=== PATIENT | male | born 1960 | race American Indian/Alaskan Native ===

== ENCOUNTER 2017-07-21 12:34 | Emergency (ER) | payer MEDICAID ==
[2017-07-21 13:55] VITALS: BP 135/97
--- NOTE | 2017-07-21 18:44 | Emergency Department Report ---
Entered by MAZIN CASTILLO, acting as scribe for KEO GUTIERREZ NP. - General Chief complaint: Skin/Abscess/Foreign Body Stated complaint: ABSCESS LEFT UNDERARM Time Seen by Provider: 07/21/17 13:56 Source: patient Mode of arrival: Ambulatory Limitations: No Limitations - History of Present Illness Initial comments: This is a 57 y/o male, nontoxic, well nourished in appearance, no acute signs of distress with a PMHx of asthma presents with a left axilla abscess that began 2 weeks ago. Rates pain an 8/10 in severity, which she describes as burning in quality. Aggravated with movement and palpation, and alleviated with nothing. Reports associated purulent drainage, but he denies fever, chills, chest pain, SOB, REYES or dizziness, numbness, and tingling. NKDA. MENDOZA complaint: abscess/boil Onset/Timin -: week(s) Tetanus Up to Date: unsure Location: LUE (left axilla) Severity: severe Severity scale (0 -10): 8 Quality: burning Consistency: constant Improves with: immobilization Worsens with: palpation, movement Context: none Associated symptoms: denies other symptoms Treatments Prior to Arrival: none - Related Data Home Medications Medication Instructions Recorded Confirmed Last Taken Furosemide [Lasix] 40 mg PO DAILY 05/14/14 05/14/14 05/12/14 09:00 40MG Meloxicam [Mobic] 15 mg PO DAILY 05/14/14 05/14/14 05/12/14 09:00 15 Montelukast Sodium [Singulair] 10 mg PO DAILY 05/14/14 05/14/14 05/12/14 09:00 10MG Previous Rx's Medication Instructions Recorded Last Taken Type Famotidine [Pepcid] 20 mg PO BID #30 tablet 05/17/14 Unknown Rx Ipratropium/Albuterol Sulfate 1 ampul IH Q6HRT #120 ampul.neb 05/17/14 Unknown Rx [DUONEB *Not for PRN Use*] Nicotine [Habitrol] 21 mg TD QDAY #14 patch 05/17/14 Unknown Rx predniSONE [Deltasone] 20 mg PO QDAY #60 tab 05/17/14 Unknown Rx Cephalexin [Keflex] 500 mg PO Q6HR #28 capsule 06/21/15 Unknown Rx HYDROcodone/APAP 5-325 [[place] 1 each PO Q8H PRN #15 tablet 06/21/15 Unknown Rx 5-325 mg TAB] Ibuprofen [Motrin 800 MG tab] 800 mg PO Q8HR PRN #21 tablet 06/21/15 Unknown Rx Ibuprofen [Motrin 600 MG tab] 600 mg PO Q8H PRN #30 tablet 07/21/17 Unknown Rx Sulfamethoxazole/Trimethoprim 1 each PO BID #14 tablet 07/21/17 Unknown Rx [Bactrim DS TAB] Allergies Allergy/AdvReac Type Severity Reaction Status Date / Time No Known Allergies Allergy Verified 07/21/17 13:51 Abscess Boil HPI - HPI Chief Complaint: Skin/Abscess/Foreign Body Stated Complaint: ABSCESS LEFT UNDERARM Time Seen by Provider: 07/21/17 13:56 Duration: >1 Week (2 weeks) Location: Upper Extremity (left axilla) Severity: Severe History: Yes Pain (to affected area on left axilla), Yes Purulent Drainage ( left axilla abscess), Yes Previous History, No Fever, No Numbness, No Foreign Body, No Insect Bite Home Medications: Home Medications Medication Instructions Recorded Confirmed Last Taken Furosemide [Lasix] 40 mg PO DAILY 05/14/14 05/14/14 05/12/14 09:00 40MG Meloxicam [Mobic] 15 mg PO DAILY 05/14/14 05/14/14 05/12/14 09:00 15 Montelukast Sodium [Singulair] 10 mg PO DAILY 05/14/14 05/14/14 05/12/14 09:00 10MG Previous Rx's Medication Instructions Recorded Last Taken Type Famotidine [Pepcid] 20 mg PO BID #30 tablet 05/17/14 Unknown Rx Ipratropium/Albuterol Sulfate 1 ampul IH Q6HRT #120 ampul.neb 05/17/14 Unknown Rx [DUONEB *Not for PRN Use*] Nicotine [Habitrol] 21 mg TD QDAY #14 patch 05/17/14 Unknown Rx predniSONE [Deltasone] 20 mg PO QDAY #60 tab 05/17/14 Unknown Rx Cephalexin [Keflex] 500 mg PO Q6HR #28 capsule 06/21/15 Unknown Rx HYDROcodone/APAP 5-325 [[place] 1 each PO Q8H PRN #15 tablet 06/21/15 Unknown Rx 5-325 mg TAB] Ibuprofen [Motrin 800 MG tab] 800 mg PO Q8HR PRN #21 tablet 06/21/15 Unknown Rx Ibuprofen [Motrin 600 MG tab] 600 mg PO Q8H PRN #30 tablet 07/21/17 Unknown Rx Sulfamethoxazole/Trimethoprim 1 each PO BID #14 tablet 07/21/17 Unknown Rx [Bactrim DS TAB] Allergies/Adverse Reactions: Allergies Allergy/AdvReac Type Severity Reaction Status Date / Time No Known Allergies Allergy Verified 07/21/17 13:51 ED Review of Systems Comment: All other systems reviewed and negative Constitutional: denies: chills, fever Eyes: denies: eye pain, eye discharge, vision change ENT: denies: ear pain, throat pain Respiratory: denies: cough, orthopnea, shortness of breath, SOB with exertion, SOB at rest, stridor, wheezing Cardiovascular: denies: chest pain, palpitations, dyspnea on exertion, orthopnea , edema, syncope, paroxysmal nocturnal dyspnea Endocrine: no symptoms reported Gastrointestinal: denies: abdominal pain, nausea, diarrhea Genitourinary: denies: urgency, dysuria Musculoskeletal: denies: back pain, joint swelling, arthralgia Skin: other (left axilla abscess). denies: rash, lesions Neurological: denies: headache, weakness, paresthesias Psychiatric: denies: anxiety, depression ED Past Medical Hx - Past Medical History Previous Medical History?: Yes Hx Congestive Heart Failure: No Hx Diabetes: No Hx Asthma: Yes Hx COPD: No (uncertain) - Surgical History Past Surgical History?: No - Family History Family history: no significant - Social History Smoking Status: Never Smoker Substance Use Type: None - Medications Home Medications: Home Medications Medication Instructions Recorded Confirmed Last Taken Type Furosemide [Lasix] 40 mg PO DAILY 05/14/14 05/14/14 05/12/14 09:00 History 40MG Meloxicam [Mobic] 15 mg PO DAILY 05/14/14 05/14/14 05/12/14 09:00 History 15 Montelukast Sodium [Singulair] 10 mg PO DAILY 05/14/14 05/14/14 05/12/14 09:00 History 10MG Famotidine [Pepcid] 20 mg PO BID #30 tablet 05/17/14 Unknown Rx Ipratropium/Albuterol Sulfate 1 ampul IH Q6HRT #120 ampul.neb 05/17/14 Unknown Rx [DUONEB *Not for PRN Use*] Nicotine [Habitrol] 21 mg TD QDAY #14 patch 05/17/14 Unknown Rx predniSONE [Deltasone] 20 mg PO QDAY #60 tab 05/17/14 Unknown Rx Cephalexin [Keflex] 500 mg PO Q6HR #28 capsule 06/21/15 Unknown Rx HYDROcodone/APAP 5-325 [[place] 1 each PO Q8H PRN #15 tablet 06/21/15 Unknown Rx 5-325 mg TAB] Ibuprofen [Motrin 800 MG tab] 800 mg PO Q8HR PRN #21 tablet 06/21/15 Unknown Rx Ibuprofen [Motrin 600 MG tab] 600 mg PO Q8H PRN #30 tablet 07/21/17 Unknown Rx Sulfamethoxazole/Trimethoprim 1 each PO BID #14 tablet 07/21/17 Unknown Rx [Bactrim DS TAB] ED Physical Exam - General Limitations: No Limitations General appearance: alert, in no apparent distress - Head Head exam: Present: atraumatic, normocephalic - Eye Eye exam: Present: normal appearance, PERRL, EOMI. Absent: scleral icterus, conjunctival injection, nystagmus, periorbital swelling, periorbital tenderness Pupils: Present: normal accommodation - ENT ENT exam: Present: normal exam, normal orophraynx, mucous membranes moist, TM's normal bilaterally, normal external ear exam - Neck Neck exam: Present: normal inspection, full ROM. Absent: tenderness, meningismus, lymphadenopathy, thyromegaly - Respiratory Respiratory exam: Present: normal lung sounds bilaterally. Absent: respiratory distress, wheezes, rales, rhonchi, stridor, chest wall tenderness, accessory muscle use, decreased breath sounds, prolonged expiratory - Cardiovascular Cardiovascular Exam: Present: regular rate, normal rhythm, normal heart sounds. Absent: bradycardia, tachycardia, irregular rhythm, systolic murmur, diastolic murmur, rubs, gallop - GI/Abdominal GI/Abdominal exam: Present: soft, normal bowel sounds. Absent: distended, tenderness, guarding, rebound, rigid - Rectal Rectal exam: Present: deferred - Extremities Exam Extremities exam: Present: normal inspection, full ROM, normal capillary refill. Absent: tenderness, pedal edema, joint swelling, calf tenderness - Back Exam Back exam: Present: normal inspection, full ROM. Absent: tenderness, CVA tenderness (R), CVA tenderness (L), muscle spasm, paraspinal tenderness, vertebral tenderness, rash noted - Neurological Exam Neurological exam: Present: alert, oriented X3, CN II-XII intact, normal gait, reflexes normal. Absent: motor sensory deficit - Psychiatric Psychiatric exam: Present: normal affect, normal mood - Skin Skin exam: Present: warm, dry, intact, other (1 cm left axilla open abscess with purulent drainage). Absent: rash ED Course Vital Signs 07/21/17 13:53 Temperature 97.8 F Pulse Rate 110 H Respiratory 20 Rate Blood Pressure 135/97 O2 Sat by Pulse 99 Oximetry - Reevaluation(s) Reevaluation #1: 07/21/17 15:26 Patient is speaking in full sentences with no signs of distress noted. Reevaluation #2: 07/21/17 15:26 The was the abscess has been drained out by squeezing the abscess. After that was performed there is no induration, fluctuance, or swelling. ED Disposition Clinical Impression: Abscess Disposition: DC-01 TO HOME OR SELFCARE Is pt being admited?: No Does the pt Need Aspirin: No Condition: Stable Instructions: Abscess (ED), Sulfamethoxazole/Trimethoprim (By mouth), Ibuprofen (By mouth) Additional Instructions: Follow-up with a primary care doctor in 3-5 days or if symptoms worsen or continue to emergency room as soon as possible. Prescriptions: Ibuprofen [Motrin 600 MG tab] 600 mg PO Q8H PRN #30 tablet PRN Reason: Pain Sulfamethoxazole/Trimethoprim [Bactrim DS TAB] 1 each PO BID #14 tablet Referrals: PRIMARY CARE, [Primary Care Provider] - 3-5 Days DAVIS PICKENS MD [Staff Physician] - 3-5 Days [facility] [Outside] - 3-5 Days [facility] [Outside] - 3-5 Days Forms: Work/School Release Form(ED) This documentation as recorded by the ANNA acosta JASMINE,accurately reflects the service I personally performed and the decisions made by ,KEO GUTIERREZ, IGNACIO.
== END 2017-07-21 16:06 | disposition home or self-care (01) ==
LOC: ED 12:34
DX: L02.412 Cutaneous abscess of left axilla (principal); J45.909 Unspecified asthma, uncomplicated
CPT/HCPCS: 99282

== ENCOUNTER 2018-04-26 09:29 | Emergency (ER) | payer MEDICAID ==
[2018-04-26 09:38] VITALS: BP 128/84
[2018-04-26] MEDS ORDERED: XYLOCAINE 1% MPF 5 mL INFILTRATI ONE (10:21)
--- NOTE | 2018-04-26 10:26 | Emergency Department Report ---
Abscess Boil HPI - HPI Chief Complaint: Skin/Abscess/Foreign Body Stated Complaint: BUMPS ON BODY Time Seen by Provider: 04/26/18 10:18 Duration: >1 Week Location: Chest Severity: Mild History: Yes Pain, Yes Purulent Drainage, No Fever, No Numbness, No Foreign Body , No Previous History, No Insect Bite HPI: This is a 57-year-old male nontoxic, well nourished in appearance, no acute signs of distress presents to the ED with c/o of abscess in the right upper chest region times one week. Patient said that area has been increase in swelling and yesterday has prominent drainage. Patient denies any fever, chills , nausea, vomiting, chest pain, shortness of breath, headache, stiff neck, numbness or tingling. Patient stated is UTD with tetanus in 2014. PAtient denies any allergies with PMH of asthma. Patient denies any insect bite. Home Medications: Home Medications Medication Instructions Recorded Confirmed Last Taken Furosemide [Lasix] 40 mg PO DAILY 05/14/14 05/14/14 05/12/14 09:00 40MG Meloxicam [Mobic] 15 mg PO DAILY 05/14/14 05/14/14 05/12/14 09:00 15 Montelukast Sodium [Singulair] 10 mg PO DAILY 05/14/14 05/14/14 05/12/14 09:00 10MG Previous Rx's Medication Instructions Recorded Last Taken Type Famotidine [Pepcid] 20 mg PO BID #30 tablet 05/17/14 Unknown Rx Ipratropium/Albuterol Sulfate 1 ampul IH Q6HRT #120 ampul.neb 05/17/14 Unknown Rx [DUONEB *Not for PRN Use*] Nicotine [Habitrol] 21 mg TD QDAY #14 patch 05/17/14 Unknown Rx predniSONE [Deltasone] 20 mg PO QDAY #60 tab 05/17/14 Unknown Rx Cephalexin [Keflex] 500 mg PO Q6HR #28 capsule 06/21/15 Unknown Rx HYDROcodone/APAP 5-325 [[place] 1 each PO Q8H PRN #15 tablet 06/21/15 Unknown Rx 5-325 mg TAB] Ibuprofen [Motrin 800 MG tab] 800 mg PO Q8HR PRN #21 tablet 06/21/15 Unknown Rx Ibuprofen [Motrin 600 MG tab] 600 mg PO Q8H PRN #30 tablet 07/21/17 Unknown Rx Sulfamethoxazole/Trimethoprim 1 each PO BID #14 tablet 07/21/17 Unknown Rx [Bactrim DS TAB] Sulfamethoxazole/Trimethoprim 1 each PO BID #14 tablet 04/26/18 Unknown Rx [Bactrim DS TAB] traMADol [Ultram] 50 mg PO Q6HR PRN #15 tablet 04/26/18 Unknown Rx Allergies/Adverse Reactions: Allergies Allergy/AdvReac Type Severity Reaction Status Date / Time No Known Allergies Allergy Verified 04/26/18 09:35 ED Review of Systems ROS: Stated complaint: BUMPS ON BODY Other details as noted in HPI Constitutional: denies: chills, fever Eyes: denies: eye pain, eye discharge, vision change ENT: denies: ear pain, throat pain Respiratory: denies: cough, shortness of breath, wheezing Cardiovascular: denies: chest pain, palpitations Endocrine: no symptoms reported Gastrointestinal: denies: abdominal pain, nausea, diarrhea Genitourinary: denies: urgency, dysuria Musculoskeletal: denies: back pain, joint swelling, arthralgia Skin: denies: rash, lesions Neurological: denies: headache, weakness, paresthesias Psychiatric: denies: anxiety, depression Hematological/Lymphatic: denies: easy bleeding, easy bruising ED Past Medical Hx - Past Medical History Hx Congestive Heart Failure: No Hx Diabetes: No Hx Asthma: Yes Hx COPD: No (uncertain) - Surgical History Past Surgical History?: No - Social History Smoking Status: Current Every Day Smoker Substance Use Type: Alcohol, Marijuana - Medications Home Medications: Home Medications Medication Instructions Recorded Confirmed Last Taken Type Furosemide [Lasix] 40 mg PO DAILY 05/14/14 05/14/14 05/12/14 09:00 History 40MG Meloxicam [Mobic] 15 mg PO DAILY 05/14/14 05/14/14 05/12/14 09:00 History 15 Montelukast Sodium [Singulair] 10 mg PO DAILY 05/14/14 05/14/14 05/12/14 09:00 History 10MG Famotidine [Pepcid] 20 mg PO BID #30 tablet 05/17/14 Unknown Rx Ipratropium/Albuterol Sulfate 1 ampul IH Q6HRT #120 ampul.neb 05/17/14 Unknown Rx [DUONEB *Not for PRN Use*] Nicotine [Habitrol] 21 mg TD QDAY #14 patch 05/17/14 Unknown Rx predniSONE [Deltasone] 20 mg PO QDAY #60 tab 05/17/14 Unknown Rx Cephalexin [Keflex] 500 mg PO Q6HR #28 capsule 06/21/15 Unknown Rx HYDROcodone/APAP 5-325 [[place] 1 each PO Q8H PRN #15 tablet 06/21/15 Unknown Rx 5-325 mg TAB] Ibuprofen [Motrin 800 MG tab] 800 mg PO Q8HR PRN #21 tablet 06/21/15 Unknown Rx Ibuprofen [Motrin 600 MG tab] 600 mg PO Q8H PRN #30 tablet 07/21/17 Unknown Rx Sulfamethoxazole/Trimethoprim 1 each PO BID #14 tablet 07/21/17 Unknown Rx [Bactrim DS TAB] Sulfamethoxazole/Trimethoprim 1 each PO BID #14 tablet 04/26/18 Unknown Rx [Bactrim DS TAB] traMADol [Ultram] 50 mg PO Q6HR PRN #15 tablet 04/26/18 Unknown Rx ED Abscess Boil Physical Exam - Exam General: Vital signs noted. No distress. Alert and acting appropriately. GENERAL: The patient is a well-developed, well-nourished in no apparent distress. Patient is alert and acting appropriately for age. Alert and oriented 3, no apparent distress, normal gait, atraumatic. HEENT: Head is normocephalic and atraumatic. PERRL, Extraocular muscles are intact. Pupils are equal, round, and reactive to light and accommodation. Nares appeared normal. Mouth is well hydrated and without lesions. Mucous membranes are moist. Posterior pharynx clear of any exudate or lesions. Mouth is well hydrated and without lesions. Tonsils not erythematous or swollen. Uvula midline. Tongue elevated. Mucous members are moist. Posterior pharynx clear, no exudate or lesions. Patent airways. NECK: Supple. No carotid bruits. No lymphadenopathy or thyromegaly.nontender. No meningitic signs are noted. LUNGS: Clear to auscultation. Non labor breathing. No intercostal retractions. Symmetrical with respiration, no wheezing, no rales, or crackles. HEART: Regular rate and rhythm without murmur, rubs or gallops. No reproducible. S1, S2 present, regular rate and rhythm without murmur, no rubs, no gallops. ABDOMEN: Soft, nontender, and nondistended. Positive bowel sounds. No hepatosplenomegaly was noted. No guarding or rebound tenderness, negative epigastric bruit. Negative psoas sign, negative rodrigues sign, negative McBurneys sign EXTREMITIES: Without any cyanosis, clubbing, rash, lesions or edema. Peripheral pulses intact. Capillary refill less than 2 seconds. Full range of motion bilaterally. NEUROLOGIC: Cranial nerves II through XII are grossly intact. Alert and oriented x 3. Normal gait. Symmetrical strength and sensation. Reflexes 2+ throughout. Cerebellar testing normal. GCS score of 15. PSYCHIATRIC: Normal affect with no suicidal or homicidal ideations. Front/Back of Body, Lg (Color): 1 - 2 cm abscess 2 - 0.5 cm abscess Size: 2 cm Exam: Yes Tenderness, Yes Fluctuance, Yes Normal Neurologic Exam, Yes Normal Circulation, No Surrounding Cellulites/Erythema, No Lymphangitis, No Crepitation , No Heart Murmur I & D Note - I & D Note I & D Note: Under sterile field, I used Betadine to cleanse the area. I then used 1% lidacaine plain with 25-gauge 5/8 needle to inject area for anesthetic purposes. Total volume injected 4 mL with 2ml on each abscess. I then used an 11 blade to make a 1 cm incision to each abscess. About 2 mL's of purulent drainage total has been noted. I then used a hemostat to break the abscess formation. I then used sterile 0.9% normal saline flush to flush the wound with total volume of 80 mL used to both abscess. I then put a 1/4 iodoform packing to the incision right chest abscess. A sterile 4 x 4 with tape has been applied as dressing. Bleeding is under control. Patient tolerated the procedure well with no signs of distress noted. ED Course Vital Signs 04/26/18 09:35 Temperature 97.7 F Pulse Rate 89 Respiratory 18 Rate Blood Pressure 128/84 O2 Sat by Pulse 98 Oximetry - Reevaluation(s) Reevaluation #1: 04/26/18 10:25 Patient is speaking in full sentences with no signs of distress noted. Critical care attestation.: If time is entered above; I have spent that time in minutes in the direct care of this critically ill patient, excluding procedure time. ED Medical Decision Making - Medical Decision Making This is a 57-year-old male that presents with 2 chest abscess that was drainage. Patient is stable and was examined by me. This is incision and drainage and has been performed and patient tolerated well. A sterile dressing has been applied. Patient was educated on proper wound care. Patient is discharged with Bactrim and Ultram and was instructed not to operate any machinery while taking Ultram due to drowsiness. Patient was instructed to return in 2 days for packing removal. Patient was instructed to refer to Follow -up with a primary care doctor in 3-5 days or if symptoms worsen and continue return to emergency room as soon as possible. At time of discharge, the patient does not seem toxic or ill in appearance. No acute signs of distress noted. Patient agrees to discharge treatment plan of care. No further questions noted by the patient. ED Disposition Clinical Impression: Abscess, Encounter for incision and drainage procedure Disposition: DC-01 TO HOME OR SELFCARE Is pt being admited?: No Does the pt Need Aspirin: No Condition: Stable Instructions: Abscess (ED), Abscess Incision and Drainage (ED), Tramadol (By mouth), Sulfamethoxazole/Trimethoprim (By mouth) Additional Instructions: Follow-up with a primary care doctor in 3-5 days or if symptoms worsen and continue return to emergency room as soon as possible. Return in 2 days for packing removal and reassessment of the abscess site. Do not operate any machinery while taking Ultram due to drowsiness. Prescriptions: Sulfamethoxazole/Trimethoprim [Bactrim DS TAB] 1 each PO BID #14 tablet traMADol [Ultram] 50 mg PO Q6HR PRN #15 tablet PRN Reason: Pain Referrals: PRIMARY CARE, [Primary Care Provider] - 3-5 Days NATY DUKE MD [Staff Physician] - 3-5 Days [facility] [Outside] - 3-5 Days [facility] [Outside] - 3-5 Days
== END 2018-04-26 10:58 | disposition home or self-care (01) ==
LOC: ED 09:29
DX: L02.213 Cutaneous abscess of chest wall (principal); J45.909 Unspecified asthma, uncomplicated; F17.200 Nicotine dependence, unspecified, uncomplicated; F12.10 Cannabis abuse, uncomplicated
CPT/HCPCS: 99282

== ENCOUNTER 2018-04-28 08:14 | Emergency (ER) | payer MEDICAID ==
[2018-04-28 09:29] VITALS: BP 115/83
--- NOTE | 2018-04-28 10:15 | Emergency Department Report ---
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 status post I&D 4 days ago patient denies pain fever chills no symptoms of infection Onset/Timin -: days(s) Location: chest 1 - abscess wounds x 2dressing intact Place: home Patient Tetanus UTD: Yes Context: other (abscess) Associated Symptoms: none - Related Data Home Medications Medication Instructions Recorded Confirmed Last Taken Furosemide [Lasix] 40 mg PO DAILY 05/14/14 05/14/14 05/12/14 09:00 40MG Meloxicam [Mobic] 15 mg PO DAILY 05/14/14 05/14/14 05/12/14 09:00 15 Montelukast Sodium [Singulair] 10 mg PO DAILY 05/14/14 05/14/14 05/12/14 09:00 10MG Previous Rx's Medication Instructions Recorded Last Taken Type Famotidine [Pepcid] 20 mg PO BID #30 tablet 05/17/14 Unknown Rx Ipratropium/Albuterol Sulfate 1 ampul IH Q6HRT #120 ampul.neb 05/17/14 Unknown Rx [DUONEB *Not for PRN Use*] Nicotine [Habitrol] 21 mg TD QDAY #14 patch 05/17/14 Unknown Rx predniSONE [Deltasone] 20 mg PO QDAY #60 tab 05/17/14 Unknown Rx Cephalexin [Keflex] 500 mg PO Q6HR #28 capsule 06/21/15 Unknown Rx HYDROcodone/APAP 5-325 [Harvey 1 each PO Q8H PRN #15 tablet 06/21/15 Unknown Rx 5-325 mg TAB] Ibuprofen [Motrin 800 MG tab] 800 mg PO Q8HR PRN #21 tablet 06/21/15 Unknown Rx Ibuprofen [Motrin 600 MG tab] 600 mg PO Q8H PRN #30 tablet 07/21/17 Unknown Rx Sulfamethoxazole/Trimethoprim 1 each PO BID #14 tablet 07/21/17 Unknown Rx [Bactrim DS TAB] Sulfamethoxazole/Trimethoprim 1 each PO BID #14 tablet 04/26/18 Unknown Rx [Bactrim DS TAB] traMADol [Ultram] 50 mg PO Q6HR PRN #15 tablet 04/26/18 Unknown Rx Allergies Allergy/AdvReac Type Severity Reaction Status Date / Time No Known Allergies Allergy Verified 04/26/18 09:35 ED Review of Systems ROS: Stated complaint: PACKING REMOVAL Other details as noted in HPI Constitutional: denies: chills, fever Eyes: denies: eye pain, eye discharge, vision change ENT: denies: ear pain, throat pain Respiratory: denies: cough, shortness of breath, wheezing Cardiovascular: denies: chest pain, palpitations Endocrine: no symptoms reported Gastrointestinal: denies: abdominal pain, nausea, diarrhea Genitourinary: denies: urgency, dysuria Musculoskeletal: denies: back pain, joint swelling, arthralgia Skin: lesions (abscess s/p I&D ). denies: rash Neurological: denies: headache, weakness, paresthesias ED Past Medical Hx - Past Medical History Hx Congestive Heart Failure: No Hx Diabetes: No Hx Asthma: Yes Hx COPD: No (uncertain) - Social History Smoking Status: Current Every Day Smoker Substance Use Type: Alcohol, Marijuana - Medications Home Medications: Home Medications Medication Instructions Recorded Confirmed Last Taken Type Furosemide [Lasix] 40 mg PO DAILY 05/14/14 05/14/14 05/12/14 09:00 History 40MG Meloxicam [Mobic] 15 mg PO DAILY 05/14/14 05/14/14 05/12/14 09:00 History 15 Montelukast Sodium [Singulair] 10 mg PO DAILY 05/14/14 05/14/14 05/12/14 09:00 History 10MG Famotidine [Pepcid] 20 mg PO BID #30 tablet 05/17/14 Unknown Rx Ipratropium/Albuterol Sulfate 1 ampul IH Q6HRT #120 ampul.neb 05/17/14 Unknown Rx [DUONEB *Not for PRN Use*] Nicotine [Habitrol] 21 mg TD QDAY #14 patch 05/17/14 Unknown Rx predniSONE [Deltasone] 20 mg PO QDAY #60 tab 05/17/14 Unknown Rx Cephalexin [Keflex] 500 mg PO Q6HR #28 capsule 06/21/15 Unknown Rx HYDROcodone/APAP 5-325 [Harvey 1 each PO Q8H PRN #15 tablet 06/21/15 Unknown Rx 5-325 mg TAB] Ibuprofen [Motrin 800 MG tab] 800 mg PO Q8HR PRN #21 tablet 06/21/15 Unknown Rx Ibuprofen [Motrin 600 MG tab] 600 mg PO Q8H PRN #30 tablet 07/21/17 Unknown Rx Sulfamethoxazole/Trimethoprim 1 each PO BID #14 tablet 07/21/17 Unknown Rx [Bactrim DS TAB] Sulfamethoxazole/Trimethoprim 1 each PO BID #14 tablet 04/26/18 Unknown Rx [Bactrim DS TAB] traMADol [Ultram] 50 mg PO Q6HR PRN #15 tablet 04/26/18 Unknown Rx ED Physical Exam - General Limitations: No Limitations General appearance: alert, in no apparent distress - Head Head exam: Present: atraumatic, normocephalic - Eye Eye exam: Present: normal appearance - ENT ENT exam: Present: mucous membranes moist - Neck Neck exam: Present: normal inspection - Respiratory Respiratory exam: Present: normal lung sounds bilaterally. Absent: respiratory distress - Cardiovascular Cardiovascular Exam: Present: regular rate, normal rhythm. Absent: systolic murmur, diastolic murmur, rubs, gallop - GI/Abdominal GI/Abdominal exam: Present: soft, normal bowel sounds - Rectal Rectal exam: Present: deferred - Extremities Exam Extremities exam: Present: normal inspection - Back Exam Back exam: Present: normal inspection - Neurological Exam Neurological exam: Present: alert, oriented X3 - Psychiatric Psychiatric exam: Present: normal affect, normal mood - Skin Skin exam: Present: warm, dry, normal color, other (abscess anterior chest wall wound bed pink, mild serious drainage mild erythema no cellulitis no symptoms increased infection. ) ED Course Vital Signs 04/28/18 09:27 Temperature 97.8 F Pulse Rate 87 Respiratory 16 Rate Blood Pressure 115/83 O2 Sat by Pulse 98 Oximetry ED Medical Decision Making - Medical Decision Making Patient dressing changes time odorous remove packing removal and clean new dressing applied wound bed pink mild serous drainage patient will follow with PCP as [facility] for continued wound check patient verbalizes understanding and agreement with discharge plan Critical care attestation.: If time is entered above; I have spent that time in minutes in the direct care of this critically ill patient, excluding procedure time. ED Disposition Clinical Impression: Wound check, abscess Disposition: DC-01 TO HOME OR SELFCARE Is pt being admited?: No Does the pt Need Aspirin: No Condition: Good Instructions: Acute Wound Care (ED) Referrals: [facility] [Outside] - 3-5 Days Forms: Work/School Release Form(ED) Time of Disposition: 10:16
== END 2018-04-28 10:20 | disposition home or self-care (01) ==
LOC: ED 08:14
DX: Z48.01 Encounter for change or removal of surgical wound dressing (principal)

== ENCOUNTER 2018-08-11 08:46 | Outpatient (CLI) | payer OTHER ==
[2018-08-11] MEDS ORDERED: PROVENTIL IH ONE (09:30)
== END 2018-08-11 08:47 | disposition home or self-care (01) ==
LOC: PF 08:46
PROVIDERS: ATTEND Internal Medicine
DX: J44.9 Chronic obstructive pulmonary disease, unspecified (principal); K21.9 Gastro-esophageal reflux disease without esophagitis; Z87.891 Personal history of nicotine dependence
CPT/HCPCS: 94060; 94640